=== PATIENT | male | born 2000 | race Caucasian/White ===

== ENCOUNTER 2021-02-24 20:34 | Emergency (ER) | payer SELFPAY ==
[~2021-02-24 20:34] MED LIST: AMOX500C2 PO; CITA10TA70 PO; allergy pill
--- OUTSIDE RECORDS SUMMARY | 2021-02-24 20:39 | XMS REPORT | Clinical Summary ---
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 Name Role Phone Odessa Arevalo CELLOPHANER Unavailable Allergies Comments Active Allergy Reactions Severity Noted Date Pt unsure of exact reaction Midazolam Other (See 01/12/2016 Comments) Medications No known medications Active Problems No known active problems Immunizations Name Administration Dates Next Due DTaP 05/08/2002, 07/28/1999, 04/1999, 1998, 1998 [id number],Live Nasal (WebIZ 04/20/2009 registry) HPV, quadrivalent 07/01/2012, 04/05/2012, 05/2011 (Gardasil) Hep B,adolescent or 1998, 1998, 03/1998 pediatric Hepatitis A, Ped/adol, 2 07/01/2012, 12/27/2011 dose Hib (Hboc) (WebIZ 07/28/1999, 06/09/1999, , 1998 registry) IPV 05/08/2002, 06/09/1999, , 1998 Influenza IIV3 MDV 02/19/2012 (Multi-dose vial) Influenza TIV (HX thru 01/22/2009 Feb 24 2010) MMR 05/08/2002, 06/09/1999 Meningococcal 12/27/2011 Polysaccharide valent-4 Diphtheria Toxoid Conjucate (Menactra) Tdap 12/27/2011 Varicella (Varivax) 12/27/2011, 06/09/1999 Social History Date Tobacco Use Types Packs/Day Years Used Current Every Day Smoker Comments Alcohol Use Standard Drinks/Week Not Asked 0 (1 standard drink = 0.6 o z pure alcohol) Sex Assigned at Date Recorded Not on file Last Filed Vital Signs Reading Time Taken Comments Vital Sign 130/60 01/12/2016 8:54 AM CDT Blood Pressure 72 01/12/2016 8:54 AM CDT Pulse - - Temperature - - Respiratory Rate - - Oxygen Saturation - - Inhaled Oxygen Concentration 82.8 kg (182 lb 8 oz) 01/12/2016 8:54 AM CDT Weight 175.9 cm (5' 9.25") 01/12/2016 8:54 AM CDT Height 26.76 01/12/2016 8:54 AM CDT Body Mass Index Plan of Treatment Health Maintenance Due Date Last Done Comments COVID-19 Vaccine (1) 2010 MenB Vaccine (Bexsero) (1 2014 of 2) Hepatitis C Screening 2016 Influenza Vaccine (#1) 2021 02/19/2012, 01/22/2009 DTaP,Tdap,and Td Vaccines 12/26/2021 12/27/2011, (7 - Td or Tdap) 05/08/2002, 07/28/1999, Additional history exists Pneumo-Vaccine: 65+Yrs (1 2063 of 1 - PPSV23) HIB Vaccines Completed 07/28/1999, 06/09/1999, 1998, Additional history exists IPV Vaccines Completed 05/08/2002, 06/09/1999, 1998, Additional history exists MMR Vaccines-Adult Completed 05/08/2002, 06/09/1999 Meningococcal Vaccine Aged Out 12/27/2011 No longe r eligible based on patient's age to complete this topic Varicella Vaccines Completed 12/27/2011, 06/09/1999 HPV Vaccines Completed 07/01/2012, 04/05/2012, 12/27/2011 Pneumo-Vaccine: Peds (0-5 Aged Out No longer el igible based on patient's age to Yrs) & At-Risk Patients complete this topic (6-64 Yrs) Rotavirus Vaccines Aged Out No longer eligible based on patient's age to complete this topic Results Not on filefrom Last 3 Months Insurance Type Payer Benefit Subscriber ID Effective Phone Address Plan / Dates Group [facility] 19 [id number] 2016- [address] [address] Advance Directives For more information, please contact: [phone] 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
[2021-02-24] MEDS ORDERED: LIDOCAINE 1% INJ 20 ML 20 ML VIAL INJ ONE (20:45)
[2021-02-24] MEDS ORDERED: cefTRIAXone 1,000 MG VIAL IM ONE (20:45)
[2021-02-24] MEDS ORDERED: AZITHROMYCIN 250 MG TAB (ZITHROMAX) PO SCH (20:45)
[2021-02-24] MEDS ORDERED: DOXY100T2 PO (21:10)
--- NOTE | 2021-02-24 21:10 | ED GU-Male ---
General Stated Complaint: UNABLE TO URINATE Source: patient Exam Limitations: no limitations (LEE NAN HUNT APRN) History of Present Illness Date Seen by Provider: Feb 24, 2021 Time Seen by Provider: 21:08 Initial Comments To ER with reports that he has some redness and discharge from the tip of his penis after having sex this past weekend. Timing/Duration: just prior to arrival Severity/Quality: moderate Radiation: none Activities at Onset: none Prior Genitourinary Problems: none Associated Symptoms: denies symptoms (LEE ANN HUNT APRN) Allergies and Home Medications Allergies Coded Allergies: midazolam HCl (Unverified Allergy, Unknown, 02/24/21) Patient Home Medication List Home Medication List Reviewed: Yes (LEE ANN HUNT APRN) Amoxicillin (Amoxicillin) 500 Mg Capsule, 1 EACH PO QID Prescribed by: LUIZ WRIGHT on 06/15/122032 Citalopram Hydrobromide (Celexa) 10 Mg Tablet, 1 EACH PO DAILY, (Reported) Entered as Reported by: JOVANNI GALE on 06/15/121923 Doxycycline Hyclate (Doxycycline Hyclate) 100 Mg Tablet, 100 MG PO BID Prescribed by: LEE ANN HUNT on 02/24/212109 [allergy pill] , (Reported) Entered as Reported by: JOVANNI GALE on 06/15/121923 Review of Systems Review of Systems Constitutional: see HPI EENTM: see HPI Respiratory: no symptoms reported Cardiovascular: no symptoms reported Genitourinary: no symptoms reported Musculoskeletal: no symptoms reported Skin: no symptoms reported Psychiatric/Neurological: No Symptoms Reported Endocrine: No Symptoms Reported Hematologic/Lymphatic: No Symptoms Reported (LEE ANN HUNT APRN) Physical Exam Vital Signs Vital Signs - First Documented 02/24/21 21:32 Temp 37.0 Pulse 70 Resp 16 B/P (MAP) 125/71 (89) Pulse Ox 100 O2 Delivery Room Air (LYDIA DELGADO MD) Vital Signs Capillary Refill : (LEE ANN HUNT APRN) Height, Weight, BMI Height: 5'" Weight: 88lbs. oz. 39.060986tm; BMI Method: General Appearance: WD/WN, no apparent distress HEENT: PERRL/EOMI, normal ENT inspection Neck: non-tender, full range of motion Respiratory: no respiratory distress, no accessory muscle use Gastrointestinal: normal bowel sounds, non tender Male: other (There is purulent discharge from the urethral orifice. No other lesions.) Extremities: normal range of motion, non-tender Neurologic/Psychiatric: alert, normal mood/affect Skin: normal color, warm/dry (LEE ANN HUNT APRN) Progress/Results/Core Measures Suspected Sepsis SIRS Temperature: Pulse: Respiratory Rate: Blood Pressure / Mean: (LEE ANN HUNT APRN) Results/Orders Lab Results Laboratory Tests Test 02/24/21 20:37 02/24/21 21:08 Range/Units Lab Scanned Report Referred Lab Report [id number] Urine Color YELLOW Urine Clarity CLEAR Urine pH 7.5 5-9 Urine Specific Biggs 1.015 L 1.016-1.022 Urine Protein 1+ H NEGATIVE Urine Glucose (UA) NEGATIVE NEGATIVE Urine Ketones NEGATIVE NEGATIVE Urine Nitrite NEGATIVE NEGATIVE Urine Bilirubin NEGATIVE NEGATIVE Urine Urobilinogen 1.0 < = 1.0 MG/DL Urine Leukocyte Esterase 1+ H NEGATIVE Urine RBC (Auto) TRACE-I NEGATIVE Urine RBC 2-5 H /HPF Urine WBC TNTC H /HPF Urine Squamous Epithelial Cells 0-2 /HPF Urine Crystals NONE /LPF Urine Bacteria LARGE H /HPF Urine Casts NONE /LPF Urine Mucus NEGATIVE /LPF Urine Culture Indicated YES Urine Chlamydia trachomatis RNA Not Detected Not Detected Urine Neisseria gonorrhoeae RNA Detected H Not Detected (LYDIA DELGADO MD) Micro Results Microbiology 02/24/21 Urine Culture - Final, Complete NO GROWTH (YLDIA DELGADO MD) Vital Signs/I&O 02/24/21 21:32 Temp 37.0 Pulse 70 Resp 16 B/P (MAP) 125/71 (89) Pulse Ox 100 O2 Delivery Room Air (LYDIA DELGADO MD) Vital Signs/I&O Capillary Refill : (LEE ANN HUNT APRN) Departure Impression Primary Impression: Urethritis Disposition: 01 HOME, SELF-CARE Condition: Stable Departure-Patient Inst. Decision time for Depature: 21:09 (LEE ANN HUNT APRN) Referrals: GUERRERO SPARKS DO (PCP/Family) Primary Care Physician Patient Instructions: Urethritis Add. Discharge Instructions: 1. Antibiotics as directed. Return to ER for any concerns. Follow-up with your doctor next week. Scripts Doxycycline Hyclate (Doxycycline Hyclate) 100 Mg Tablet 100 MG PO BID, #20 TAB 0 Refills Prov: LEE ANN HUNT APRN 02/24/21 LEE ANN HUNT APRN Feb 24, 2021 21:10 LYDIA DELGADO MD Feb 28, 2021 06:21
[2021-02-24 21:17] LABS: BILIRUBIN,URINE NEGATIVE (NEGATIVE); CLARITY,URINE CLEAR; COLOR,URINE YELLOW; GLUCOSE, URINE (UA) NEGATIVE (NEGATIVE); KETONES,URINE NEGATIVE (NEGATIVE); LEUKOCYTE ESTERASE ,URINE 1+ (NEGATIVE); NITRITE,URINE NEGATIVE (NEGATIVE); PH,URINE 7.5 (5-9); PROTEIN,URINE 1+ (NEGATIVE)
[2021-02-24 21:25] LABS: BACTERIA,URINE LARGE /HPF; SQUAMOUS EPITHELIAL CELL,UR 0-2 /HPF; WBC,URINE TNTC /HPF
[2021-02-24 21:32] VITALS: BP 125/71
== END 2021-02-24 21:31 | disposition home or self-care (01) ==
LOC: EDUNIT# 20:34 → ER 20:37
DX: N34.1 Nonspecific urethritis (principal)
CPT/HCPCS: 36415; 81000; 87088; 87491; 87591; 96372; 99284

== ENCOUNTER 2022-04-06 08:00 | Emergency (ER) | payer SELFPAY ==
[~2022-04-06] VITALS: Ht 182 cm; Wt 61.0 kg
[~2022-04-06 08:00] MED LIST changes: +DOXY100T2 PO
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
[2022-04-06] MEDS ORDERED: ONDANSETRON 4 MG (ZOFRAN) ORAL DISSOLVE TAB PO STA (08:33)
[2022-04-06] MEDS ORDERED: HYDROcodone/APAP 7.5 MG/325 MG (LORTAB, LORCET PLUS) TABLET PO ONE (08:45)
[2022-04-06] MEDS ORDERED: PENI500T PO (09:17)
[2022-04-06 09:42] VITALS: BP 129/71
== END 2022-04-06 09:42 | disposition home or self-care (01) ==
LOC: EDUNIT# 08:00 → ER 08:03
DX: K02.9 Dental caries, unspecified (principal); K03.81 Cracked tooth; F17.200 Nicotine dependence, unspecified, uncomplicated
CPT/HCPCS: 99283

== ENCOUNTER 2023-04-15 21:43 | Inpatient (IN) | payer SELFPAY ==
[~2023-04-15] VITALS: Ht 170.2 cm; Wt 53.2 kg
[~2023-04-15 21:43] MED LIST changes: +PENI500T PO
[2023-04-15] MEDS: KETAMINE 100 MG/ML 5 ML VIAL ONE ×2 (21:50→21:55)
[2023-04-15] MEDS ORDERED: DexMEDEtomidine 1,000mcg/250ml 250 ML IV ONE (21:56)
[2023-04-15] MEDS: DexMEDEtomidine 1,000mcg/250ml 250 ML IV SCH ×2 (21:58→23:33)
[2023-04-15 22:05] LABS: BASOPHILS % (AUTO) 1 % (0-10); EOSINOPHILS # (AUTO) 0.2 10^3/uL (0.0-0.3); EOSINOPHILS % (AUTO) 2 % (0-10); HEMATOCRIT 41 % (40-54); HEMOGLOBIN 14.5 g/dL (13.3-17.7); LYMPHOCYTES # (AUTO) 3.2 10^3/uL (1.0-4.0); LYMPHOCYTES % (AUTO) 44 % (12-44); MEAN CORPUSCULAR HEMOGLOBIN 32 pg (25-34); MEAN CORPUSCULAR HGB CONC 35 g/dL (32-36); MEAN CORPUSCULAR VOLUME 90 fL (80-99); MEAN PLATELET VOLUME 9.3 fL (9.0-12.2); MONOCYTES # (AUTO) 0.6 10^3/uL (0.0-1.0); MONOCYTES % (AUTO) 8 % (0-12); NEUTROPHILS # (AUTO) 3.4 10^3/uL (1.8-7.8); NEUTROPHILS % (AUTO) 46 % (42-75); PLATELET COUNT 366 10^3/uL (130-400); WHITE BLOOD COUNT 7.4 10^3/uL (4.3-11.0)
[2023-04-15 22:11] LABS: ALBUMIN 4.3 GM/DL (3.2-4.5)
[2023-04-15 22:14] LABS: TOTAL PROTEIN 7.4 GM/DL (6.4-8.2)
[2023-04-15 22:15] LABS: INR 0.9 (0.8-1.4); PROTHROMBIN TIME PATIENT 12.3 SEC (12.2-14.7)
[2023-04-15 22:16] LABS: BILIRUBIN,TOTAL 0.3 MG/DL (0.1-1.0)
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
[2023-04-15 22:18] LABS: CREATININE SERUM 0.84 MG/DL (0.60-1.30)
[2023-04-15 23:14] LABS: AMPHETAMINE SCREEN, URINE POSITIVE (NEGATIVE); BARBITURATE SCREEN URINE NEGATIVE (NEGATIVE); CANNABINOID SCREEN, URINE NEGATIVE (NEGATIVE); COCAINE SCREEN URINE NEGATIVE (NEGATIVE); METHADONE STAT NEGATIVE (NEGATIVE); OPIATE SCREEN URINE NEGATIVE (NEGATIVE); OXYCODONE STAT NEGATIVE (NEGATIVE); TRICYCLIC ANTIDEPRESSANTS SCRE NEGATIVE (NEGATIVE)
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
[2023-04-16] MEDS: NS IV 1000 ML 1,000 ML IV SCH ×2 (01:00→13:57)
[2023-04-16 04:33] LABS: BASOPHILS % (AUTO) 0 % (0-10); EOSINOPHILS % (AUTO) 0 % (0-10); HEMATOCRIT 41 % (40-54); HEMOGLOBIN 14.2 g/dL (13.3-17.7); LYMPHOCYTES # (AUTO) 1.6 10^3/uL (1.0-4.0); LYMPHOCYTES % (AUTO) 16 % (12-44); MEAN CORPUSCULAR HEMOGLOBIN 32 pg (25-34); MEAN CORPUSCULAR HGB CONC 35 g/dL (32-36); MEAN CORPUSCULAR VOLUME 90 fL (80-99); MEAN PLATELET VOLUME 9.5 fL (9.0-12.2); MONOCYTES # (AUTO) 0.7 10^3/uL (0.0-1.0); MONOCYTES % (AUTO) 7 % (0-12); NEUTROPHILS # (AUTO) 7.7 10^3/uL (1.8-7.8); NEUTROPHILS % (AUTO) 76 % (42-75); PLATELET COUNT 302 10^3/uL (130-400); WHITE BLOOD COUNT 10.1 10^3/uL (4.3-11.0)
[2023-04-16 04:46] LABS: ALBUMIN 3.8 GM/DL (3.2-4.5); POTASSIUM 4.1 MMOL/L (3.6-5.0)
[2023-04-16 04:47] LABS: CALCIUM 8.7 MG/DL (8.5-10.1)
[2023-04-16 04:48] LABS: TOTAL PROTEIN 6.4 GM/DL (6.4-8.2)
[2023-04-16 04:50] LABS: BILIRUBIN,TOTAL 0.5 MG/DL (0.1-1.0)
[2023-04-16 04:52] LABS: CREATININE SERUM 0.7 MG/DL (0.60-1.30); PHOSPHORUS 3.4 MG/DL (2.3-4.7)
[2023-04-16 04:55] LABS: MAGNESIUM 2.3 MG/DL (1.6-2.4)
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
[2023-04-16] MEDS: DexMEDEtomidine 1,000 MCG/250 ML IV SCH (15:15)
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
[2023-04-17] MEDS: NS IV 1000 ML 1,000 ML IV SCH (03:28)
[2023-04-17 05:48] LABS: BASOPHILS % (AUTO) 0 % (0-10); EOSINOPHILS # (AUTO) 0.1 10^3/uL (0.0-0.3); EOSINOPHILS % (AUTO) 2 % (0-10); HEMATOCRIT 40 % (40-54); HEMOGLOBIN 13.6 g/dL (13.3-17.7); LYMPHOCYTES # (AUTO) 1.5 10^3/uL (1.0-4.0); LYMPHOCYTES % (AUTO) 31 % (12-44); MEAN CORPUSCULAR HEMOGLOBIN 31 pg (25-34); MEAN CORPUSCULAR HGB CONC 34 g/dL (32-36); MEAN CORPUSCULAR VOLUME 92 fL (80-99); MEAN PLATELET VOLUME 9.3 fL (9.0-12.2); MONOCYTES # (AUTO) 0.4 10^3/uL (0.0-1.0); MONOCYTES % (AUTO) 8 % (0-12); NEUTROPHILS # (AUTO) 2.9 10^3/uL (1.8-7.8); NEUTROPHILS % (AUTO) 59 % (42-75); PLATELET COUNT 288 10^3/uL (130-400); WHITE BLOOD COUNT 4.9 10^3/uL (4.3-11.0)
[2023-04-17 06:23] LABS: ALBUMIN 3.5 GM/DL (3.2-4.5)
[2023-04-17 06:25] LABS: CALCIUM 8.6 MG/DL (8.5-10.1)
[2023-04-17 06:28] LABS: BILIRUBIN,TOTAL 0.5 MG/DL (0.1-1.0)
[2023-04-17 06:30] LABS: CREATININE SERUM 0.73 MG/DL (0.60-1.30)
[2023-04-17 06:33] LABS: MAGNESIUM 2.1 MG/DL (1.6-2.4)
[2023-04-17] MEDS: DexMEDEtomidine 1,000 MCG/250 ML IV SCH (07:10)
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
[2023-04-17] MEDS: ENOXAPARIN 30 MG/0.3 ML SYRINGE SC SCH (11:25)
[2023-04-17] MEDS: D5 1/2NS + KCL 20 MEQ/L 1000ML 1,000 ML IV SCH (12:55)
[2023-04-18] MEDS: D5 1/2NS + KCL 20 MEQ/L 1000ML 1,000 ML IV SCH ×2 (01:11→14:02)
[2023-04-18] MEDS: DexMEDEtomidine 1,000 MCG/250 ML IV SCH (01:13)
[2023-04-18] MEDS ORDERED: LORazepam 1 MG TABLET PO PRN (09:55)
[2023-04-18] MEDS ORDERED: HALOPERIDOL 5 MG TABLET PO PRN (10:00)
[2023-04-18] MEDS ORDERED: HALOPERIDOL INJECTION 5 MG/ML VIAL IM PRN (10:00)
[2023-04-18] MEDS: ENOXAPARIN 30 MG/0.3 ML SYRINGE SC SCH (10:50)
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
[2023-04-18] MEDS ORDERED: ACETAMINOPHEN 325 MG TABLET PO PRN ×2 (14:15→14:30)
[2023-04-19] MEDS: D5 1/2NS + KCL 20 MEQ/L 1000ML 1,000 ML IV SCH ×2 (02:37→15:30)
[2023-04-19] MEDS: DexMEDEtomidine 1,000 MCG/250 ML IV SCH (07:11)
[2023-04-19] MEDS ORDERED: ZIPRASIDONE INJECTION 20 MG VIAL IM ONE (11:39)
[2023-04-19] MEDS ORDERED: WATER (STERILE) FOR INJ 10 ML BTL INJ SCH (11:45)
[2023-04-19] MEDS ORDERED: ZIPRASIDONE INJECTION 20 MG VIAL IM PRN (11:45)
[2023-04-19] MEDS: ENOXAPARIN 30 MG/0.3 ML SYRINGE SC SCH (11:48)
--- NOTE | 2023-04-19 12:36 | Diagnostic Imaging Report ---
PROCEDURE: CT head without contrast. TECHNIQUE: Multiple contiguous axial images were obtained through the brain without the use of intravenous contrast. Auto Exposure Controls were utilized during the CT exam to meet ALARA standards for radiation dose reduction. INDICATION: Altered mental status and ataxia. COMPARISON is made with prior exam of 04/15/2023. FINDINGS: The ventricles and sulci are within normal limits. There is no hydrocephalus. There is no midline shift. There is no mass, hemorrhage or extra-axial fluid collection. There are no territorial areas of ischemia. The calvarium is intact. There is mucosal thickening in the maxillary sinuses bilaterally, left greater than right, as well as the ethmoid air cells and sphenoid sinus. Frontal sinus is clear. The mastoid air cells are clear. IMPRESSION: No acute intracranial abnormality. Moderate sinus disease, as described. Interval improvement in the left scalp hematoma. Dictated by: Dictated on workstation # [id number]
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
[2023-04-19] MEDS ORDERED: OLANZapine 2.5 MG TABLET PO SCH (21:00)
[2023-04-20] MEDS: D5 1/2NS + KCL 20 MEQ/L 1000ML 1,000 ML IV SCH (04:47)
[2023-04-20] MEDS: DexMEDEtomidine 1,000 MCG/250 ML IV SCH (04:47)
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
[2023-04-20 08:57] VITALS: BP 104/36
[2023-04-20] MEDS ORDERED: LORazepam 1 MG TABLET PO SCH (10:00)
[2023-04-20] MEDS: ENOXAPARIN 30 MG/0.3 ML SYRINGE SC SCH (10:15)
--- NOTE | 2023-04-20 13:04 | Progress Note ---
Progress Note Unable to contact family for transportation to [facility] due to suspicion for TBI and we do not have services here of that specialty so benefits outweigh med risks and it is prudent to transfer him to [facility] as planned. HARSH NEW DO Apr 20, 2023 13:04
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
== END 2023-04-20 16:15 | disposition short-term general hospital (02) | DRG 84 ==
LOC: EDUNIT# 21:43 → ER 21:46 → ICU 23:47 → OBSVTOIN 04-16 00:05 → ICU 04-16 11:00
PROVIDERS: ADMIT Internal Medicine; ATTEND Internal Medicine
DX: S06.2XAA Diffuse traumatic brain injury with loss of consciousness status unknown, initial encounter (principal); Y09 Assault by unspecified means; Y07.9 Unspecified perpetrator of maltreatment and neglect; R27.0 Ataxia, unspecified; R45.1 Restlessness and agitation; F15.129 Other stimulant abuse with intoxication, unspecified
CPT/HCPCS: 36415; 51701; 51702; 70450; 72125; 80053; 80306; 80320; 82947; 83735; 84100; 85025; 85610; 87081; 93005; 93041; 96372; 96374; 99291